=== PATIENT | male | born 1990 | race Caucasian/White ===

== ENCOUNTER 2017-05-18 22:08 | Emergency (ER) | payer OTHER ==
[~2017-05-18] VITALS: Ht 172.7 cm; Wt 110.0 kg
[2017-05-18] MEDS ORDERED: KETOROLAC 30 MG/1 ML ONE (22:22)
[2017-05-18] MEDS ORDERED: ONDANSETRON 2MG/ML, 2ML ONE (22:22)
[2017-05-18] MEDS ORDERED: PLEASE ENTER ALLERGIES MC SCH ×2 (22:30)
[2017-05-18] MEDS ORDERED: ONDANSETRON 2MG/ML, 2ML IVPush ONE (22:30)
[2017-05-18] MEDS ORDERED: KETOROLAC 30 MG/1 ML IVPush ONE (22:30)
[2017-05-18 22:41] LABS: ASPARTATE AMINO TRANSFERASE 30 U/L (15-37); BLOOD UREA NITROGEN 15 mg/dL (7-18)
[2017-05-19 00:24] VITALS: BP 133/80
== END 2017-05-19 00:28 | disposition home or self-care (01) ==
LOC: ED 23:59
DX: N20.2 Calculus of kidney with calculus of ureter (principal); R10.11 Right upper quadrant pain
CPT/HCPCS: 36415; 80053; 81001; 83690; 85025; 96374; 96375; 99284; J1885; J2405